=== PATIENT | male | born 1985 | race Caucasian/White ===

== ENCOUNTER → 2023-10-13 08:35 | Outpatient (REF) | payer OTHER, SELFPAY | LOC: PAVMRI 08:35 | PROVIDERS: ATTENDING PHYSICIAN Internal Medicine Cardiovascular Disease; FAMILY PHYSICIAN Internal Medicine Geriatric Medicine | DX: I47.20 Ventricular tachycardia, unspecified (principal) | CPT/HCPCS: 75561; 75565; A9585 ==